=== PATIENT | female | born 1965 | race Caucasian/White ===

== ENCOUNTER 2018-11-19 07:52 | Emergency (ER) | payer BC ==
[~2018-11-19] VITALS: Ht 154.9 cm; Wt 108.9 kg
[2018-11-19 07:52] VITALS: BP 155/96
--- NOTE | 2018-11-19 07:55 | NUR ---
ED Nurse Note: BROUGHT IN BY RA 31 FROM HOME DUE TO CP RADIATING TO LEFT SHOULDER X 7 HOURS. 160MG ASA AND NTG GIVEN BY EMS. A/OX4. DENIES CP AND SOB AT THIS TIME. NO S/S OF DISTRESS. CHEST RISES EVENLY. AT BEDSIDE.
[2018-11-19] MEDS ORDERED: SPIRONOLACTONE100 MG ORAL (07:57)
[2018-11-19] MEDS ORDERED: HYDRALAZINE HCL10 MG ORAL (07:57)
[2018-11-19] MEDS ORDERED: METFORMIN HCL500 M1 ORAL (07:57)
[2018-11-19] MEDS ORDERED: BENAZEPRIL HCL10 MG ORAL (07:57)
[2018-11-19] MEDS ORDERED: FUROSEMIDE20 M1 ORAL (07:57)
[2018-11-19 08:32] LABS: BASOPHILS % (AUTO) 0.7 % (0.0-2.0); EOSINOPHILS % (AUTO) 0.2 % (0.0-3.0); HEMATOCRIT 48.3 % (37.0-47.0); HEMOGLOBIN 16.2 G/DL (12.0-16.0); LYMPHOCYTES % (AUTO) 22.8 % (20.0-45.0); MEAN CORPUSCULAR VOLUME 81 FL (80-99); MONOCYTES % (AUTO) 5.1 % (1.0-10.0); NEUTROPHILS % (AUTO) 71.2 % (45.0-75.0); PLATELET COUNT 228 K/UL (150-450); RED CELL DISTRIBUTION WIDTH 11.8 % (11.6-14.8); WHITE BLOOD COUNT 12.8 K/UL (4.8-10.8)
[2018-11-19 08:33] LABS: APPEARANCE,URINE CLEAR; BILIRUBIN, URINE NEGATIVE (NEGATIVE); COLOR,URINE PALE YELLOW; GLUCOSE, URINE (UA) NEGATIVE (NEGATIVE); KETONES,URINE NEGATIVE (NEGATIVE); LEUKOCYTE ESTERASE ,URINE 1+ (NEGATIVE); NITRITE,URINE NEGATIVE (NEGATIVE); PH,URINE 8 (4.5-8.0); PROTEIN,URINE NEGATIVE (NEGATIVE); UROBILINOGEN,URINE NORMAL MG/DL (0.0-1.0)
--- NOTE | 2018-11-19 09:31 | Diagnostic Imaging Report ---
Indication: Cough Technique: One view of the chest Comparison: none Findings: The lungs and pleural spaces are clear. The heart size is borderline enlarged Impression: Borderline cardiomegaly. No acute process
[2018-11-19 09:32] LABS: ALANINE AMINOTRANSFERASE 20 U/L (12-78); ALBUMIN 4.5 G/DL (3.4-5.0); ALBUMIN/GLOBULIN RATIO 1.5 (1.0-2.7); ALKALINE PHOSPHATASE 109 U/L (46-116); ANION GAP 11 mmol/L (5-15); ASPARTATE AMINO TRANSFERASE 11 U/L (15-37); BILIRUBIN,TOTAL 0.6 MG/DL (0.2-1.0); BLOOD UREA NITROGEN 11 mg/dL (7-18); CARBON DIOXIDE 25 MMOL/L (21-32); CHLORIDE 103 MMOL/L (98-107); CKMB 0.9 NG/ML (0.0-3.6); CREATINE KINASE 32 U/L (26-308); CREATININE 1.1 MG/DL (0.55-1.30); POTASSIUM 4.3 MMOL/L (3.5-5.1); SODIUM 139 MMOL/L (136-145)
--- NOTE | 2018-11-19 09:50 | Emergency Room Report ---
History of Present Illness General Chief Complaint: Chest Pain Source: Patient Present Illness HPI This patient states that early this morning around 2:58 AM she woke up with chest pain. She states that she also had symptoms prior to that around 1 AM that she ignored and went back to sleep. She states she woke up again and still had the symptoms and became worried. She states she is also had respiratory infection for the past couple weeks. She had associated this with seasonal allergies which she also has. She states she has had a lot of coughing with sputum production. She denies fever chills. She denies nausea or vomiting. She denies shortness of breath or abdominal pain. She has no other complaints. Allergies: Coded Allergies: AMLODIPINE (Verified Allergy, Unknown, 11/19/18) Patient History Past Medical History: see triage record, HTN, seizures, other - cardiomegaly Social History: Denies: smoking, alcohol use, drug use Reviewed Nursing Documentation: PMH: Agreed; PSxH: Agreed Nursing Documentation-PMH Hx Hypertension: Yes Hx Seizures: Yes - night sz Review of Systems All Other Systems: negative except mentioned in HPI Physical Exam Vital Signs Date Time Temp Pulse Resp B/P (MAP) Pulse Ox O2 Delivery O2 Flow Rate FiO2 11/19/18 07:50 99.0 108 16 166/106 (126) 97 Room Air Sp02 EP Interpretation: reviewed, normal General Appearance: no apparent distress, alert, GCS 15, non-toxic Head: normocephalic, atraumatic Eyes: bilateral eye normal inspection, bilateral eye PERRL ENT: hearing grossly normal, normal pharynx, no angioedema, normal voice Neck: full range of motion, supple/symm/no masses Respiratory: chest non-tender, lungs clear, normal breath sounds, no respiratory distress, no retraction, no accessory muscle use, speaking full sentences Cardiovascular #1: regular rate, rhythm, no edema Gastrointestinal: normal bowel sounds, non tender, soft, non-distended, no guarding, no rebound Rectal: deferred Musculoskeletal: back normal, gait/station normal, normal range of motion, non- tender Neurologic: alert, oriented x3, responsive, motor strength/tone normal, sensory intact, speech normal Psychiatric: judgement/insight normal, memory normal, mood/affect normal, no suicidal/homicidal ideation Skin: normal color, no rash, warm/dry, well hydrated Medical Decision Making Diagnostic Impression: Primary Impression: Chest pain Additional Impression: Bronchitis ER Course This patient has nonspecific chest pain. Given the length of symptoms, this workup is very reassuring with negative cardiac enzymes, normal EKG, and normal chest x-ray. The patient is low risk and his symptoms are atypical for acute coronary syndrome. I have very low suspicion for PE, aortic dissection or pneumothorax based on history/physical, laboratory and radiologic workup. The patient has had upper respiratory symptoms to include cough over the past 2 weeks and so I will go ahead and give the patient a course of antibiotics, especially given the elevation in the white blood cell count. Patient was also educated to follow-up closely with her primary care physician for her poorly controlled hypertension. The patient was given close return precautions and followup instructions. Laboratory Tests Test 11/19/18 08:05 11/19/18 08:55 White Blood Count 12.8 K/UL (4.8-10.8) H Red Blood Count 6.00 M/UL (4.20-5.40) H Hemoglobin 16.2 G/DL (12.0-16.0) H Hematocrit 48.3 % (37.0-47.0) H Mean Corpuscular Volume 81 FL (80-99) Mean Corpuscular Hemoglobin 27.0 PG (27.0-31.0) Mean Corpuscular Hemoglobin Concent 33.5 G/DL (32.0-36.0) Red Cell Distribution Width 11.8 % (11.6-14.8) Platelet Count 228 K/UL (150-450) Mean Platelet Volume 7.9 FL (6.5-10.1) Neutrophils (%) (Auto) 71.2 % (45.0-75.0) Lymphocytes (%) (Auto) 22.8 % (20.0-45.0) Monocytes (%) (Auto) 5.1 % (1.0-10.0) Eosinophils (%) (Auto) 0.2 % (0.0-3.0) Basophils (%) (Auto) 0.7 % (0.0-2.0) Urine Color Pale yellow Urine Appearance Clear Urine pH 8 (4.5-8.0) Urine Specific [place] 1.010 (1.005-1.035) Urine Protein Negative (NEGATIVE) Urine Glucose (UA) Negative (NEGATIVE) Urine Ketones Negative (NEGATIVE) Urine Blood 1+ (NEGATIVE) H Urine Nitrite Negative (NEGATIVE) Urine Bilirubin Negative (NEGATIVE) Urine Urobilinogen Normal MG/DL (0.0-1.0) Urine Leukocyte Esterase 1+ (NEGATIVE) H Urine RBC 0-2 /HPF (0 - 2) Urine WBC 0-2 /HPF (0 - 2) Urine Squamous Epithelial Cells Few /LPF (NONE/OCC) Urine Bacteria Occasional /HPF (NONE) Troponin I 0.000 ng/mL (0.000-0.056) Urine Opiates Screen Negative (NEGATIVE) Urine Barbiturates Screen Negative (NEGATIVE) Phencyclidine (PCP) Screen Negative (NEGATIVE) Urine Amphetamines Screen Negative (NEGATIVE) Urine Benzodiazepines Screen Negative (NEGATIVE) Urine Cocaine Screen Negative (NEGATIVE) Urine Marijuana (THC) Screen Negative (NEGATIVE) Sodium Level 139 MMOL/L (136-145) Potassium Level 4.3 MMOL/L (3.5-5.1) Chloride Level 103 MMOL/L (98-107) Carbon Dioxide Level 25 MMOL/L (21-32) Anion Gap 11 mmol/L (5-15) Blood Urea Nitrogen 11 mg/dL (7-18) Creatinine 1.1 MG/DL (0.55-1.30) Estimate Glomerular Filtration Rate 52.4 mL/min (>60) Glucose Level 115 MG/DL (74-106) H Calcium Level 16.5 MG/DL (8.5-10.1) *H Total Bilirubin 0.6 MG/DL (0.2-1.0) Aspartate Amino Transferase (AST) 11 U/L (15-37) L Alanine Aminotransferase (ALT) 20 U/L (12-78) Alkaline Phosphatase 109 U/L (46-116) Total Creatine Kinase 32 U/L (26-308) Creatine Kinase MB 0.9 NG/ML (0.0-3.6) Creatine Kinase MB Relative Index 2.8 Total Protein 7.6 G/DL (6.4-8.2) Albumin 4.5 G/DL (3.4-5.0) Globulin 3.1 g/dL Albumin/Globulin Ratio 1.5 (1.0-2.7) EKG Diagnostic Results Rate: tachycardiac Rhythm: other - S.tachycardia ST Segments: no acute changes Rhythm Strip Diag. Results EP Interpretation: yes Rate: 100's Rhythm: no PVC's, no ectopy, other - S.tachycardia Chest X-Ray Diagnostic Results Chest X-Ray Diagnostic Results : Chest X-Ray Ordered: Yes # of Views/Limited/Complete: 1 View Indication: Chest Pain EP Interpretation: Yes Interpretation: no acute cardiopulmonary disease, other - Cardiomegaly Impression: No acute disease Electronically Signed by: Maryann Neves DO Last Vital Signs Date Time Temp Pulse Resp B/P (MAP) Pulse Ox O2 Delivery O2 Flow Rate FiO2 11/19/18 07:52 99.0 115 16 155/96 98 Room Air Status: improved Disposition: HOME, SELF-CARE Condition: Improved Referrals: GEMA GAMBLE MD (PCP) Patient Instructions: Nonspecific Chest Pain, Heartburn Maryann Neves DO Nov 19, 2018 09:50
[2018-11-19 10:00] VITALS: BP 160/65
[2018-11-19] MEDS ORDERED: Lidocaine 2% Visc 15ml soln ORAL ONE (10:00)
--- NOTE | 2018-11-19 10:22 | NUR ---
ED Nurse Note: notified ERMD about pt's Ca 16.5
[2018-11-19 10:23] LABS: CALCIUM 16.5 MG/DL (8.5-10.1)
[2018-11-19 10:46] VITALS: BP 159/79
[2018-11-19] MEDS ORDERED: ZITHROMAX250 MG ORAL (12:16)
--- NOTE | 2018-11-19 12:33 | NUR ---
ED Nurse Note: DC INSTRUCTION IS READY TO BE GIVEN AFTER PT'S FLUID IS DONE.
[2018-11-19 12:48] VITALS: BP 150/71
[2018-11-19 12:56] VITALS: BP 150/71
--- NOTE | 2018-11-19 12:57 | NUR ---
ED Nurse Note: Pt cleared by health care Provider for discharge. DC instructions/prescription was given and explained to pt and verbalized understanding of teachings. All medical deviecs such as ID band and IV removed. Pt is AAO x4, ambulatory and left with all personal belongings.
== END 2018-11-19 12:57 | disposition home or self-care (01) ==
LOC: EDBD 07:52 → EMR 08:35
DX: R07.9 Chest pain, unspecified (principal); J20.9 Acute bronchitis, unspecified; Z88.8 Allergy status to other drugs, medicaments and biological substances; I10 Essential (primary) hypertension; G40.909 Epilepsy, unspecified, not intractable, without status epilepticus; I51.7 Cardiomegaly; R00.0 Tachycardia, unspecified
CPT/HCPCS: 36415; 71045; 80053; 80307; 81003; 82550; 82553; 84484; 85025; 93005; 96361; 96374; 96375; 99284; J0360; S0028